=== PATIENT | female | born 1990 | race Asian ===

== ENCOUNTER 2022-09-16 23:42 | Inpatient (IN) | payer BC ==
[~2022-09-16] VITALS: Ht 160 cm; Wt 81.8 kg
--- NOTE | 2022-09-16 11:50 | NUR ---
G1L0 39.1 AMBULATORY TO LR6 WITH SPOUSE. CLEAN GOWN ON. EFM AND TOCO EXPLAINED AND APPLIED. PATIENT STATES SHE HAS BEEN JT FOR ABOUT ONE HOUR AND REPORTS CONTRACTIONS EVERY 5 MINUTES. DENIES LEAKING OF FLUID OR VAGINAL BLEEDING. REPORTS GOOD MOVEMENT. PLAN OF CARE EXPLAINED. SVE COMPLETED. 0013 - DR ROLES NOTIFIED, SEE PHYSICIAN NOTIFICATION. 0024 - IV STARTED AND LABS OBTAINED VIA IV SITE. LR BOLUS INFUSING WITHOUT DIFFICULTY. 0040 - REPORT GIVEN TO Susy VERGARA RN.
[2022-09-17] VITALS (32 sets, daily range): BP systolic 103–156; BP diastolic 55–85; PULSE 72–112; TEMP 97.4–98.4
[2022-09-17 01:05] LABS: BASO # 0.1 K/mm3 (0.0-0.2); BASO % 0.3 % (0.0-2.0); EOS # 0.1 K/mm3 (0.0-0.7); EOS % 0.6 % (0.0-4.0); GRAN # 11.7 K/mm3 (1.4-6.5); GRAN % 80.3 % (42.2-75.2); HEMATOCRIT 40.1 % (37.0-47.0); HEMOGLOBIN 12.9 g/dl (12.5-16.0); LYMPH # 1.7 K/mm3 (1.2-3.4); LYMPH % 11.9 % (20.0-51.0); MEAN CELL VOLUME 68 fl (80.0-100.0); MEAN CORPUSCULAR HEMOGLOBIN 22 pg (27-31); MEAN CORPUSCULAR HGB CONC 32 g/dl (33.0-37.0); MEAN PLATELET VOLUME 11.7 fl (7.4-10.4); MONO # 0.9 K/mm3 (0.1-0.6); MONO % 6.1 % (1.7-9.3); PLATELET COUNT 217 K/mm3 (130-400); RED BLOOD COUNT 5.87 M/mm3 (4.10-5.30); REDCELL DISTRIBUTION WIDTH-CV 14.2 % (11.5-14.5)
--- NOTE | 2022-09-17 05:40 | NUR ---
PT ROLES WAS NOTIFIED AND UPDATED ON PT VAG EXAM. IT IS /-2, I CAN FEEL BABY'S HEAD BETTER, BAG OF WATER IS STILL BULGING. PT RATES HER PAIN AT 8-9 ON THE PAIN SCALE. UC'S PALPATE FIRM. PT WILL STOP TALKING AND BREATHES THROUGH THE UC'S. PT STILL DOES NOT WANT AN EPIDURAL. DR SMITH STATES TO KEEP GOIONG WITH WHAT WE ARE DOING SINCE PT IS PROGRESSING AND SHE DOES NOT WANT AN EPIDURAL.
--- NOTE | 2022-09-17 06:30 | NUR ---
Patient resting in bed and breathing through contractions. Patient updated on plan of care and no needs at this time. 0638: Maternal heart rate tracing and monitor adjusting. 0650: Patient up to bathroom. 0715: Dr. Contreras at nurses station and updated on patient. No new orders given at this time. This RN discussing with patient about plan of care. Patient agrees with AROM, patient requests epidural at this time. Dr. Contreras updated and will AROM after epidural placement. Plan of care discussed with patient and questions answered. 0724: Sanya ADULT SERVICES LIBRARIAN called and notified and on the way. 0725: Dr. Contreras at bedside and assessing patient and updating patient on plan of care.
--- NOTE | 2022-09-17 07:55 | NUR ---
Sanya D[employer] SUBM[employer]GENCE [employer] CREWMEMBER at bedside and patient positioned and sitting. Difficulty tracing FHR due to maternal heart rate. 0813: Test dose done at this time and patient tolerates. Patient repositioned. Plan of care. 0838: Patient comfortable with epidural and Dr. Contreras at bedside assessing patient. SVE-9/90/+1 and AROM at this time with clear fluid noted. 0930: Variable declerations noted and patient repotioned. 0930: SVE-9-10/100/+1 and patient straight cathed at this time. Dr. Contreras called and updated. 0940: Patient begins to push with contractions.
--- NOTE | 2022-09-17 09:52 | NUR ---
called and updated. Orders to start pitocin at this time and patient agrees with plan. 1025: Minimal progress noted with pushing. Patient turned right lateral and left leg in stirrup. 1038: Left lateral and right leg in stirrup. Patient uncomfortable with contractions. 1040: Sanya CANTRELL at bedside to dose epidural. 1052: Patient begins to start pushing with contractions. 1055: called and notified. 1100: at bedside assessing patient and progress. Patient continues to push with contractions and progress noted. 1130: Dr. Contreras in to assess progress. 1200: Dr. Contreras at bedside to assess progress and pushing with patient. Vacuum assisted delivery discussed with patient and spouse. Patient/spouse agree. Patient set up for vaginal delivery and pericare done. 1208: Dr. Contreras straight catherizes patient. 1210: Vacuum applied. 1211: Patient pushing with contraction and traction applied. 1213: Patient pushing and traction appled, vacuum assisted delivery of head followed by shoulders. bulb syringed and to patients abdomen and C.Cam CANTRELL assumes care of . Cord clamped x2 and cut by FOB. Dr. Contreras obtains cord gases and cord blood. 1218: Spontaneous delivery of placenta and pitocin bolus started per protocol. Zee pad under patient and physician injects lidocaine and repairs laceration. Pericare done, fundal massage done/firm/bleeding WNL, repositioned. Plan of care discussed.
[2022-09-18] MEDS ORDERED: IBU600 MG PO (08:36)
[2022-09-18 09:05] VITALS: BP 117/62; PULSE 67; TEMP 97.4
--- NOTE | 2022-09-18 09:06 | NUR ---
Initial visit attempt; Family resting, [employer] Director left card offering congratulations and God's blessings for the of their son and information regarding the availability of Spirit[facility] at [facility].
[2022-09-18 16:00] VITALS: BP 106/56; PULSE 77; TEMP 97.4
== END 2022-09-18 18:35 | disposition home or self-care (01) | DRG 807 ==
LOC: LDRO 23:42 → OB 09-17 00:19 → LDR 09-17 00:19 → OB 09-17 15:00
PROVIDERS: ADMIT Obstetrics & Gynecology
PROC: 10D07Z6 Extraction of Products of Conception, Vacuum, Via Natural or Artificial Opening (ICD-10-PCS; principal; 2022-09-17)
PROC: 0KQM0ZZ Repair Perineum Muscle, Open Approach (ICD-10-PCS; 2022-09-17)
DX: O99.824 Streptococcus B carrier state complicating childbirth (principal); Z37.0 Single live birth; O63.1 Prolonged second stage (of labor); O70.1 Second degree perineal laceration during delivery; Z3A.39 39 weeks gestation of pregnancy; Z86.16 Personal history of COVID-19
CPT/HCPCS: J2400; J2540; J2590; J2795; J7120